=== PATIENT | female | born 1965 | race Caucasian/White ===

== ENCOUNTER 2017-09-16 07:53 | Day surgery (SDC) | payer BC ==
[~2017-09-16 07:53] MED LIST: Lactated Ringers 1,000 ML IV SCH
[2017-09-16] MEDS ORDERED: Propofol 200 MG/20 ML SDV ONE ×2 (08:14→10:28)
[2017-09-16] MEDS ORDERED: Lidocaine 2% 5 ML SDV ONE (08:14)
--- NOTE | 2017-09-16 09:12 | PCM.PREANE ---
Preanesthetic Assessment - Anesthesia/Transfusion/Family Hx Anesthesia History: Prior Anesthesia Without Reaction Family History of Anesthesia Reaction: No Transfusion History: No Prior Transfusion(s) - Review of Systems General: No Symptoms Pulmonary: No Symptoms Cardiovascular: No Symptoms (syncopal episode this am when getting up to go to bathroom. orthostatic? from bowel prep?) Neurological: No Symptoms Other: Reports: None - Physical Assessment NPO Status Date: 09/15/17 NPO Status Time: 23:00 O2 Sat by Pulse Oximetry: 98 Respiratory Rate: 16 Vital Signs: Last Vital Signs Temp 36.2 C 09/16/17 08:11 Pulse 76 09/16/17 08:11 Resp 16 09/16/17 08:11 BP 129/79 09/16/17 08:11 Pulse Ox 98 09/16/17 08:11 Height: 1.75 m Weight: 107.048 kg ASA Class: 2 Mental Status: Alert & Oriented x3 Airway Class: Mallampati = 2 Dentition: Reports: Normal Dentition ROM/Head Extension: Full Lungs: Clear to Auscultation, Normal Respiratory Effort Cardiovascular: Regular Rate, Regular Rhythm - Lab Values: Laboratory Last Values HCG, Qual NEGATIVE (NEG) 09/16/17 08:19 - Allergies Allergies/Adverse Reactions: Allergies Allergy/AdvReac Type Severity Reaction Status Date / Time atorvastatin [From Lipitor] Allergy Pain Verified 09/11/17 15:06 metformin Allergy Pain Verified 09/11/17 15:06 morphine Allergy Change Verified 09/11/17 15:06 Mental Status - Acknowledgements Anesthesia Type Planned: MAC Pt an Appropriate Candidate for the Planned Anesthesia: Yes Alternatives and Risks of Anesthesia Discussed w Pt/Guardian: Yes Pt/Guardian Understands and Agrees with Anesthesia Plan: Yes Additional Comments: will rehydrate and watch rhythm PreAnesthesia Questionnaire HEENT History: Reports: Impaired Vision Other HEENT History: wears glasses Cardiovascular History: Reports: High Cholesterol Respiratory History: Reports: None Gastrointestinal History: Reports: Chronic Constipation Genitourinary History: Reports: None 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: Polycystic Ovaries Musculoskeletal History: Reports: Fibromyalgia Other Musculoskeletal History: chronic right shoulder pain Neurological History: Reports: None Psychiatric History: Reports: None Endocrine/Metabolic History: Reports: Diabetes, Type II, Obesity/BMI 30+ Hematologic History: Reports: Anemia Immunologic History: Reports: None Oncologic (Cancer) History: Reports: None Dermatologic History: Reports: None - Infectious Disease History Infectious Disease History: Reports: Chicken Pox - Past Surgical History GI Surgical History: Reports: Appendectomy - SUBSTANCE USE Smoking Status *Q: Former Smoker Recreational Drug Use History: No - HOME MEDS Home Medications: Home Meds Cyanocobalamin (Vitamin B12) [Vitamin B12] 1,000 mcg PO DAILY 09/11/17 [History] Ferrous Gluconate [Iron] 240 mg PO ASDIRECTED 09/11/17 [History] Folic Acid 1 mg PO DAILY 09/11/17 [History] Hydrochlorothiazide 25 mg PO DAILY 09/11/17 [History] Insulin Lispro Prot/Lispro [HumaLOG Mix 75-25] 30 unit SQ BID 09/11/17 [History] Multivitamin [Daily Multiple Vitamin] 1 tab PO DAILY 09/11/17 [History] Vitamin E 100 unit PO DAILY 09/11/17 [History] traMADol HCl [Tramadol HCl] 50 mg PO Q6H PRN 09/11/17 [History] - CURRENT (IN HOUSE) MEDS Current Meds: Current Medications Lactated Ringer's (Ringers, Lactated) 1,000 mls @ 125 mls/hr IV ASDIRECTED [facility] Last Admin: 09/16/17 08:12 Dose: 125 mls/hr Discontinued Medications Lidocaine (Xylocaine-Mpf 2%) Confirm Administered Dose 5 ml .ROUTE .STK-MED ONE Stop: 09/16/17 08:15 Propofol (Diprivan 20 Ml) Confirm Administered Dose 400 mg .ROUTE .STK-MED ONE Stop: 09/16/17 08:15
--- NOTE | 2017-09-16 10:58 | PCM.OPNOTE ---
- General Post-Op/Procedure Note Date of Surgery/Procedure: 09/16/17 Operative Procedure(s): egd w bx and colonoscopy w snare polypectomy Findings: see dict [id number] Pre Op Diagnosis: abd pain and increase constipation Post-Op Diagnosis: colon polyp and gerd Anesthesia Technique: Moderate Sedation Primary Surgeon: Jimmy Rivers Pathology: 1) sessile polyp at distance 130cm, r colon, snare polypectomy 2) random coln bx 3) egd bx Complications: None Condition: Good
[2017-09-16 11:46] VITALS: BP 114/75
--- NOTE | 2017-09-16 12:02 | PCM.POSTAN ---
POST ANESTHESIA ASSESSMENT - MENTAL STATUS Mental Status: Alert, Oriented - RESPIRATORY Respiratory Status: Respiratory Rate WNL, Airway Patent, O2 Saturation Stable - CARDIOVASCULAR CV Status: Pulse Rate WNL, Blood Pressure Stable - GASTROINTESTINAL GI Status: No Symptoms - POST OP HYDRATION Hydration Status: Adequate & Stable
--- NOTE | 2017-09-16 12:02 | PCM48HPAN ---
Post Anesthesia Note - EVALUATION WITHIN 48HRS OF ANESTHETIC Vital Signs in Normal Range: Yes Patient Participated in Evaluation: Yes Respiratory Function Stable: Yes Airway Patent: Yes Cardiovascular Function Stable: Yes Hydration Status Stable: Yes Pain Control Satisfactory: Yes Nausea and Vomiting Control Satisfactory: Yes Mental Status Recovered: Yes
--- NOTE | 2017-09-16 12:20 | OR ---
SURGEON: Jimmy Rivers MD DATE OF PROCEDURE: 09/16/2017 PROCEDURE PERFORMED: 1. Esophagogastroduodenoscopy with biopsy. 2. Colonoscopy with snare polypectomy, random bx for abd pain EGD FINDINGS: 1. The patient is easily sedated with MINING ANALYST and Diprivan. The patient is soundly snoring. 2. Oropharynx and proximal esophagus are free of disease. GE junction shows mild salmon color change consistent with acid reflux. Stomach, we do not see too much rugae. The patient is status post sleeve gastrectomy. Antrum is quite inflamed, but there is no ulcer, blood, bile, or food particle. Duodenum was grossly normal. Retroflex look at the fundus of stomach, there was no hiatal hernia. Biopsy done at antrum, body, and GE junction at 40, and sucked out the air while scope pulling out. DESCRIPTION OF PROCEDURE: The patient was taken to the endoscopy room, and with the MINING ANALYST, Diprivan was administered. A well-lubricated EGD scope was gently inserted through the oropharynx, down the esophagus, passing through the gastroesophageal junction, into the stomach. The mucosa was examined upon the passage. Any etiology will be noted. Once in the stomach, we continued to advance to the distal antrum, passed through the pylorus into the second portion of the duodenum. Again, the mucosa was examined for any abnormality and etiology. The scope was then retrieved back to the stomach and then retroflexed to look at the fundus of the stomach. If a biopsy was indicated, we will biopsy the antrum, body, and gastroesophageal junction. The air will be sucked out while the scope is retrieved to reduce the patient's discomfort. The patient tolerated the procedure well. There were no intraoperative complications. Dr. Rivers was present through the whole procedure. Prior to surgery, a time-out had been called, the patient identified, procedure identified and antibiotic administered. COLONOSCOPY FINDINGS: 1. The patient is easily sedated with MINING ANALYST and Diprivan. The patient is soundly snoring. 2. Colon prep is very good. Very little liquid stool. No semi-formed stool. 3. The patient's colon was rather straight forward. Cecum indicated by ileocecal fold, one-to-one indentation, and appendix orifice. Light immittance was not observed and mucosa examined. In the right colon when the scope pulling at 130 distant, there was a 3 mm sessile polyp removed with snare polypectomy. It is in the right colon and the patient does not have inflammation, stricture, ulceration, bleeding, diverticulosis, mass, growth, or AV malformation. And random colon bx was performed because of abd pain. The patient does have mild external hemorrhoid and mild internal hemorrhoids. The patient would benefit from repeat colonoscopy in 3 to 5 years from today or if clinically or pathology report indicated otherwise. DESCRIPTION OF PROCEDURE: The patient was taken to the endoscopy room. A time out was called, patient identified, and procedure identified. Diprivan was then administrated. Patient went from awake to sleep, hearing doctor talking or door closing is normal. Perineum inspection and digital examination were then performed. A well- lubricated colonoscope was gently inserted through the rectum, advanced past the rectosigmoid junction, the descending colon, splenic flexure, transverse colon, hepatic flexure, ascending colon, arrived to the cecum. Cecum was identified as dictated in the finding. Then the scope was carefully withdrawn while attention was paid to the mucosal surface for any abnormality. Air will be sucked out during the scope withdrawal. At the rectum, retroflexed to examine any rectal diseases, fistula or hemorrhoids. During mucosal examination, polyp noted and Using snare equipment, polyp was then snared off using electrocautery. random bx performed for abd pain; The Patient tolerated procedure well. There were no intraoperative complications, and Dr. Rivers was present throughout the whole procedure. DIEGO / CATHY /[id number] MIN
--- NOTE | 2017-09-16 14:32 | OR ---
SURGEON: Jimmy Rivers MD DATE OF PROCEDURE: 09/16/2017 ADDENDUM: On the colonoscopy, random biopsy also was done for abdominal pain. DIEGO / CATHY /[id number]
--- NOTE | 2017-09-26 13:25 | OR ---
SURGEON: Jimmy Rivers MD DATE OF PROCEDURE: 09/16/2017 ADDENDUM: When the scope was examined down to the left colon area, there was a smooth walled, sessile polyp, which was removed with snare polypectomy, captured, and sent for procedure and it was on the scope a distance of 25 cm from the rectum when the scope was moving out. As always, thank you for the kind referral. DIEGO / CATHY /[id number]
== END 2017-09-16 12:20 | disposition home or self-care (01) ==
LOC: MW.SDS 07:53
PROVIDERS: ATTEND Surgery
DX: K29.50 Unspecified chronic gastritis without bleeding (principal); K31.89 Other diseases of stomach and duodenum; K20.9 Esophagitis, unspecified; D12.2 Benign neoplasm of ascending colon; K64.4 Residual hemorrhoidal skin tags; K64.8 Other hemorrhoids; D64.9 Anemia, unspecified; I10 Essential (primary) hypertension; E78.00 Pure hypercholesterolemia, unspecified; E11.9 Type 2 diabetes mellitus without complications; E66.9 Obesity, unspecified; M79.7 Fibromyalgia; Z87.891 Personal history of nicotine dependence; Z98.84 Bariatric surgery status; Z90.49 Acquired absence of other specified parts of digestive tract; Z88.5 Allergy status to narcotic agent; Z88.8 Allergy status to other drugs, medicaments and biological substances; Z79.4 Long term (current) use of insulin; Z79.899 Other long term (current) drug therapy; Z68.34 Body mass index [BMI] 34.0-34.9, adult
CPT/HCPCS: 36415; 43239; 45385; 84703; J7120; 00740; 88305; 88312; J2704

== ENCOUNTER 2021-07-11 16:13 | Inpatient (IN) | payer BC ==
--- NOTE | 2021-07-11 16:47 | EDM.PDOC ---
ED HPI GENERAL MEDICAL PROBLEM - General Chief Complaint: Skin Complaint Stated Complaint: TRIANA REFERAL, POSSIBLE TOE INFECTION Time Seen by Provider: 07/11/21 16:14 Source of Information: Reports: Patient History Limitations: Reports: No Limitations - History of Present Illness INITIAL COMMENTS - FREE TEXT/NARRATIVE: Patient is a 56-year-old female presents today for left third toe infection. She has been trying to take care of the infection as outpatient and is try Bactrim Keflex and Clinda without success. Patient was sent in by PMD for continued infection. Per patient she currently has no pain in the toe, she also denies fever chills nausea vomiting or any other systemic symptoms. Patient states this started when she had a callus to the bottom of her toe that she tried to cut off and since not healed. She is a diabetic and normally has controlled sugars. - Related Data Allergies Allergy/AdvReac Type Severity Reaction Status Date / Time atorvastatin [From Lipitor] Allergy Pain Verified 07/11/21 16:32 metformin Allergy Pain Verified 07/11/21 16:32 morphine Allergy Change Verified 07/11/21 16:32 Mental Status Home Meds: Home Meds Cyanocobalamin (Vitamin B12) [Vitamin B12] 1,000 mcg PO DAILY 09/11/17 [History] Ferrous Gluconate [Iron] 240 mg PO ASDIRECTED 09/11/17 [History] Folic Acid 1 mg PO DAILY 09/11/17 [History] Hydrochlorothiazide 25 mg PO DAILY 09/11/17 [History] Insulin Lispro Prot/Lispro [HumaLOG Mix 75-25] 30 unit SQ BID 09/11/17 [History] Multivitamin [Daily Multiple Vitamin] 1 tab PO DAILY 09/11/17 [History] Vitamin E 100 unit PO DAILY 09/11/17 [History] traMADol HCl [Tramadol HCl] 50 mg PO Q6H PRN 09/11/17 [History] Past Medical History HEENT History: Reports: Impaired Vision Other HEENT History: wears glasses Cardiovascular History: Reports: High Cholesterol Respiratory History: Reports: None Gastrointestinal History: Reports: Chronic Constipation Genitourinary History: Reports: None 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: Polycystic Ovaries Musculoskeletal History: Reports: Fibromyalgia Other Musculoskeletal History: chronic right shoulder pain Neurological History: Reports: None Psychiatric History: Reports: None Endocrine/Metabolic History: Reports: Diabetes, Type II, Obesity/BMI 30+ Hematologic History: Reports: Anemia Immunologic History: Reports: None Oncologic (Cancer) History: Reports: None Dermatologic History: Reports: None - Infectious Disease History Infectious Disease History: Reports: Chicken Pox - Past Surgical History Head Surgeries/Procedures: Reports: None HEENT Surgical History: Reports: None Cardiovascular Surgical History: Reports: None Respiratory Surgical History: Reports: None GI Surgical History: Reports: Appendectomy, Bariatric Procedure Other GI Surgeries/Procedures: gastric sleeve Female Surgical History: Reports: None Neurological Surgical History: Reports: None Musculoskeletal Surgical History: Reports: None Oncologic Surgical History: Reports: None Dermatological Surgical History: Reports: None Social & Family History - Family History Family Medical History: No Pertinent Family History - Tobacco Use Tobacco Use Status *Q: Former Tobacco User Used Tobacco, but Quit: Yes Month/Year Tobacco Last Used: 30 years - Recreational Drug Use Recreational Drug Use: No ED ROS GENERAL - Review of Systems Review Of Systems: See Below Constitutional: Reports: No Symptoms HEENT: Reports: No Symptoms Respiratory: Reports: No Symptoms Cardiovascular: Reports: No Symptoms Endocrine: Reports: No Symptoms GI/Abdominal: Reports: No Symptoms : Reports: No Symptoms Musculoskeletal: Reports: Foot Pain Skin: Reports: No Symptoms Neurological: Reports: No Symptoms Psychiatric: Reports: No Symptoms Hematologic/Lymphatic: Reports: No Symptoms Immunologic: Reports: No Symptoms ED EXAM, SKIN/RASH Exam: See Below Exam Limited By: No Limitations General Appearance: Alert, WD/WN, No Apparent Distress Eye Exam: Bilateral Eye: EOMI, PERRL Throat/Mouth: Normal Inspection Head: Atraumatic, Normocephalic Respiratory/Chest: No Respiratory Distress, Lungs Clear, Normal Breath Sounds Cardiovascular: Normal Peripheral Pulses, Regular Rate, Rhythm Peripheral Pulses: 2+: Dorsalis Pedis (L), Dorsalis Pedis (R) GI/Abdominal: Normal Bowel Sounds, Soft, Non-Tender Extremities: Normal Range of Motion, Non-Tender. No: Normal Inspection (Drainage to the plantar surface of the third toe redness to the entire left foot) Neurological: Alert, Oriented, CN II-XII Intact, Normal Cognition Course - Vital Signs Last Recorded V/S: Last Vital Signs Temp 96.3 F L 07/11/21 16:29 Pulse 81 07/11/21 16:29 Resp 18 07/11/21 16:29 BP 126/72 07/11/21 16:29 Pulse Ox 98 07/11/21 16:29 - Orders/Labs/Meds Orders: Active Orders 24 hr Category Date Time Status Patient Status [ADT] Routine ADT 07/11/21 18:04 Ordered CORONAVIRUS COVID-19 MARTIN [MOLEC] Stat Lab 07/11/21 16:52 Received VANCOmycin 2 GM/400 ML 2 gm Med 07/11/21 18:03 Ordered Premix Bag 1 bag IV STAT Medication Orders Vancomycin HCl 2 gm/ Premix 400 mls @ 200 mls/hr IV STAT ONE Stop: 07/11/21 20:02 Labs: Laboratory Tests 07/11/21 07/11/21 07/11/21 Range/Units 16:52 16:52 16:52 WBC 8.11 (4.0-11.0) K/uL RBC 4.33 (4.30-5.90) M/uL Hgb 12.2 (12.0-16.0) g/dL Hct 36.6 (36.0-46.0) % MCV 84.5 (80.0-98.0) fL MCH 28.2 (27.0-32.0) pg MCHC 33.3 (31.0-37.0) g/dL RDW Std Deviation 40.5 (28.0-62.0) fl RDW Coeff of Jessica 13 (11.0-15.0) % Plt Count 282 (150-400) K/uL MPV 9.40 (7.40-12.00) fL Neut % (Auto) 57.0 (48.0-80.0) % Lymph % (Auto) 27.6 (16.0-40.0) % Kimble % (Auto) 5.9 (0.0-15.0) % Eos % (Auto) 8.5 H (0.0-7.0) % Baso % (Auto) 1.0 (0.0-1.5) % Neut # (Auto) 4.6 (1.4-5.7) K/uL Lymph # (Auto) 2.2 (0.6-2.4) K/uL Kimble # (Auto) 0.5 (0.0-0.8) K/uL Eos # (Auto) 0.7 (0.0-0.7) K/uL Baso # (Auto) 0.1 (0.0-0.1) K/uL Nucleated RBC % 0.0 /100WBC Nucleated RBCs # 0 K/uL ESR 40 H (0-29) mm/hr Sodium 138 (136-145) mmol/L Potassium 3.6 (3.5-5.1) mmol/L Chloride 101 (98-107) mmol/L Carbon Dioxide 27.8 (21.0-32.0) mmol/L BUN 21 H (7.0-18.0) mg/dL Creatinine 1.0 (0.6-1.0) mg/dL Est Cr Clr Drug Dosing 67.21 mL/min Estimated GFR (MDRD) 57.8 ml/min Glucose 134 H (74-106) mg/dL Calcium 9.1 (8.5-10.1) mg/dL Total Bilirubin 0.3 (0.2-1.0) mg/dL AST 21 (15-37) IU/L ALT 21 (14-63) IU/L Alkaline Phosphatase 82 (46-116) U/L Creatine Kinase 91 (26-308) U/L C-Reactive Protein 1.80 H (0.00-0.90) mg/dL Total Protein 7.1 (6.4-8.2) g/dL Albumin 3.0 L (3.4-5.0) g/dL Globulin 4.1 H (2.6-4.0) g/dL Albumin/Globulin Ratio 0.7 L (0.9-1.6) Meds: Medications Generic Name Dose Route Start Last Admin Trade Name Freq PRN Reason Stop Dose Admin Vancomycin HCl 2 gm/ Premix 400 mls @ 200 mls/hr 07/11/21 18:03 IV 07/11/21 20:02 STAT ONE Discontinued Medications Generic Name Dose Route Start Last Admin Trade Name Freq PRN Reason Stop Dose Admin Ceftriaxone Sodium 2 gm 07/11/21 18:03 Ceftriaxone 1 Gm Vial IVPUSH 07/11/21 18:04 ONETIME ONE - Re-Assessments/Exams Free Text/Narrative Re-Assessment/Exam: 07/11/21 18:07 And x-ray shows possible osteomyelitis. Patient has normal WBC. Patient be started on Vanco and ceftriaxone admitted to the hospital for further care. Departure - Departure Time of Disposition: 18:06 Disposition: Admitted As Inpatient 68 Condition: Good Clinical Impression: Osteomyelitis of toe of left foot - Discharge Information Referrals: Emily Johnson DO [Primary Care Provider] - Forms: ED Department Discharge Sepsis Event Note (ED) - Evaluation Sepsis Screening Result: No Definite Risk - Focused Exam Vital Signs: Vital Signs Temp Pulse Resp BP Pulse Ox 07/11/21 16:29 96.3 F L 81 18 126/72 98 - My Orders Last 24 Hours: My Active Orders 07/11/21 16:52 CORONAVIRUS COVID-19 MARTIN [MOLEC] Stat 07/11/21 18:03 VANCOmycin 2 GM/400 ML 2 gm Premix Bag 1 bag IV STAT 07/11/21 18:04 Patient Status [ADT] Routine - Assessment/Plan Last 24 Hours: My Active Orders 07/11/21 16:52 CORONAVIRUS COVID-19 MARTIN [MOLEC] Stat 07/11/21 18:03 VANCOmycin 2 GM/400 ML 2 gm Premix Bag 1 bag IV STAT 07/11/21 18:04 Patient Status [ADT] Routine Plan: She is a 56-year-old female who presents today for possible infection of her third toe. Patient is try outpatient antibiotics without success. Patient would like me to be admitted for IV antibiotics.
--- NOTE | 2021-07-11 17:38 | CR ---
HISTORY: Third toe drainage. Possible osteomyelitis. TECHNIQUE: Left foot 3 views. COMPARISON: None. FINDINGS: Erosion of the distal lateral aspect of the tuft of the 3rd toe distal phalanx. No other erosions. No fracture or subluxation. Joint spaces are maintained. Bipartite medial hallux sesamoid. Plantar calcaneal enthesophyte. Soft tissue swelling at the ankle and in the foot. IMPRESSION: Erosion of the tuft of the 3rd toe distal phalanx suspicious for osteomyelitis. Dictated by Tien Suarez MD @ 07/11/2021 5:36:[address] Tien Suarez @ Jul 11 2021 5:36PM
[2021-07-11 17:41] LABS: CARBON DIOXIDE,CO2 27.8 mmol/L (21.0-32.0); POTASSIUM,K 3.6 mmol/L (3.5-5.1)
[2021-07-11] MEDS ORDERED: cefTRIAXone 1 GM Vial IVPUSH ONE (18:03)
[2021-07-11] MEDS ORDERED: VANCOmycin 2 GM/400 ML 2 GM in Premix Bag 1 BAG IV ONE (18:03)
[2021-07-11] MEDS ORDERED: cefTRIAXone 2 GM in Premix Bag 1 BAG IV ONE (18:19)
[2021-07-11] MEDS ORDERED: Insulin Lispro Protamine/Lispro 75-25 100 Units/ML 3 ML KwikPen SUBCUT SCH (21:00)
[2021-07-11] MEDS ORDERED: Piperacillin/Tazobactam 3.375 GM in Sodium Chloride 0.9% 50 ML IV SCH (23:45)
[2021-07-11] MEDS ORDERED: 50% Dextrose in Water 50 ML Syringe IVPUSH PRN (23:55)
[2021-07-11] MEDS ORDERED: Glucagon,Human Recombinant 1 MG Vial IM PRN (23:55)
[2021-07-12] MEDS ORDERED: VANCOmycin 1.75 GM/350 ML 1.75 GM in Premix Bag 1 BAG IV SCH ×2
--- NOTE | 2021-07-12 00:08 | PCM.HP.2 ---
H&P History of Present Illness - General Date of Service: 07/11/21 Admit Problem/Dx: Admission Diagnosis/Problem Admission Diagnosis/Problem Osteomyelitis of toe of left foot - History of Present Illness Initial Comments - Free Text/Narative: 56 yo female with pmh of diabetes and hypertension who for several weeks has been treated infection of his middle left toe. Patient has been on clindamycin then Bactrim. In follow up in clinic today patient was told to go to the ER. PAtient reported she had tried to cut off a callus which caused the infection. She reports some pain and redness around the left toe. Left Toe-Middle Pain Score (Numeric/FACES): 4 - Related Data Allergies/Adverse Reactions: Allergies Allergy/AdvReac Type Severity Reaction Status Date / Time atorvastatin [From Lipitor] Allergy Pain Verified 07/11/21 20:04 metformin Allergy Pain Verified 07/11/21 20:04 morphine Allergy Change Verified 07/11/21 20:04 Mental Status Home Medications: Home Meds Hydrochlorothiazide 25 mg PO DAILY 09/11/17 [History] traMADol HCl [Tramadol HCl] 50 mg PO Q6H PRN 09/11/17 [History] Insulin Glargine/Lixisenatide [[place] 100 Unit-33 Mcg/ml Pen] 56 units SUBCUT ACBREAKFAST 07/11/21 [History] Acetaminophen/HYDROcodone [HYDROcodone-Acetaminophen 5-325 MG *] 5 - 325 mg PO Q4H PRN 07/12/21 [History] Dapagliflozin Propanediol [Farxiga] 10 mg PO DAILY 07/12/21 [History] Potassium Chloride [Klor-Con 10] 10 meq PO DAILY 07/12/21 [History] Sertraline [Zoloft] 50 mg PO DAILY 07/12/21 [History] atorvaSTATin [Lipitor] 40 mg PO DAILY 07/12/21 [History] atorvaSTATin [Lipitor] 40 mg PO DAILY 07/12/21 [History] Amoxicillin/Potassium Clav [Augmentin 875-125 Tablet] 1 each PO BID #14 tablet 07/13/21 [Rx] Linezolid [Zyvox] 600 mg PO Q12H #14 tab 07/13/21 [Rx] Past Medical History HEENT History: Reports: Impaired Vision Other HEENT History: wears glasses Cardiovascular History: Reports: High Cholesterol Respiratory History: Reports: None Gastrointestinal History: Reports: Chronic Constipation Genitourinary History: Reports: None [employer] History: Reports: Polycystic Ovaries Musculoskeletal History: Reports: Fibromyalgia Other Musculoskeletal History: chronic right shoulder pain Neurological History: Reports: None Psychiatric History: Reports: Depression Endocrine/Metabolic History: Reports: Diabetes, Type II, Obesity/BMI 30+ Hematologic History: Reports: Anemia Immunologic History: Reports: None Oncologic (Cancer) History: Reports: None Dermatologic History: Reports: None - Infectious Disease History Infectious Disease History: Reports: Chicken Pox - Past Surgical History Head Surgeries/Procedures: Reports: None HEENT Surgical History: Reports: None Cardiovascular Surgical History: Reports: None Respiratory Surgical History: Reports: None GI Surgical History: Reports: Appendectomy, Bariatric Procedure Other GI Surgeries/Procedures: gastric sleeve Female Surgical History: Reports: None Neurological Surgical History: Reports: None Musculoskeletal Surgical History: Reports: None Oncologic Surgical History: Reports: None Dermatological Surgical History: Reports: None Social & Family History - Family History Family Medical History: No Pertinent Family History - Tobacco Use Tobacco Use Status *Q: Former Tobacco User Used Tobacco, but Quit: Yes Month/Year Tobacco Last Used: 1988 - Caffeine Use Caffeine Use: Reports: Coffee - Recreational Drug Use Recreational Drug Use: No H&P Review of Systems - Review of Systems: Review Of Systems: Comprehensive ROS is negative, except as noted in HPI. Exam - Exam Exam: See Below - Vital Signs Vital Signs: Last Vital Signs Temp 36.3 C 07/11/21 23:35 Pulse 69 07/11/21 23:35 Resp 18 07/11/21 23:35 BP 138/60 07/11/21 23:35 Pulse Ox 96 07/11/21 23:35 Weight: 116.483 kg - Exam General: Alert, Oriented HEENT: Mucosa Moist & [place] Neck: Supple Lungs: Clear to Auscultation, Normal Respiratory Effort Cardiovascular: Regular Rate, Regular Rhythm GI/Abdominal Exam: Normal Bowel Sounds, Soft, Non-Tender Extremities: Non-Tender, No Pedal Edema, Other (3rd toe with dried eschar circumfrental. with mild edema and erthema of distal medial dorsum of the foot.) Skin: Warm, Dry, Intact - Patient Data Lab Results Last 24 hrs: Laboratory Results - last 24 hr 07/11/21 07/11/21 07/11/21 Range/Units 16:52 16:52 16:52 WBC 8.11 (4.0-11.0) K/uL RBC 4.33 (4.30-5.90) M/uL Hgb 12.2 (12.0-16.0) g/dL Hct 36.6 (36.0-46.0) % MCV 84.5 (80.0-98.0) fL MCH 28.2 (27.0-32.0) pg MCHC 33.3 (31.0-37.0) g/dL RDW Std Deviation 40.5 (28.0-62.0) fl RDW Coeff of Jessica 13 (11.0-15.0) % Plt Count 282 (150-400) K/uL MPV 9.40 (7.40-12.00) fL Neut % (Auto) 57.0 (48.0-80.0) % Lymph % (Auto) 27.6 (16.0-40.0) % [place] % (Auto) 5.9 (0.0-15.0) % Eos % (Auto) 8.5 H (0.0-7.0) % Baso % (Auto) 1.0 (0.0-1.5) % Neut # (Auto) 4.6 (1.4-5.7) K/uL Lymph # (Auto) 2.2 (0.6-2.4) K/uL [place] # (Auto) 0.5 (0.0-0.8) K/uL Eos # (Auto) 0.7 (0.0-0.7) K/uL Baso # (Auto) 0.1 (0.0-0.1) K/uL Nucleated RBC % 0.0 /100WBC Nucleated RBCs # 0 K/uL ESR 40 H (0-29) mm/hr Sodium 138 (136-145) mmol/L Potassium 3.6 (3.5-5.1) mmol/L Chloride 101 (98-107) mmol/L Carbon Dioxide 27.8 (21.0-32.0) mmol/L BUN 21 H (7.0-18.0) mg/dL Creatinine 1.0 (0.6-1.0) mg/dL Est Cr Clr Drug Dosing 67.21 mL/min Estimated GFR (MDRD) 57.8 ml/min Glucose 134 H (74-106) mg/dL POC Glucose (70-99) mg/dL Calcium 9.1 (8.5-10.1) mg/dL Total Bilirubin 0.3 (0.2-1.0) mg/dL AST 21 (15-37) IU/L ALT 21 (14-63) IU/L Alkaline Phosphatase 82 (46-116) U/L Creatine Kinase 91 (26-308) U/L C-Reactive Protein 1.80 H (0.00-0.90) mg/dL Total Protein 7.1 (6.4-8.2) g/dL Albumin 3.0 L (3.4-5.0) g/dL Globulin 4.1 H (2.6-4.0) g/dL Albumin/Globulin Ratio 0.7 L (0.9-1.6) SARS-CoV-2 RNA (MARTIN) (NEGATIVE) 07/11/21 07/11/21 Range/Units 16:52 20:12 WBC (4.0-11.0) K/uL RBC (4.30-5.90) M/uL Hgb (12.0-16.0) g/dL Hct (36.0-46.0) % MCV (80.0-98.0) fL MCH (27.0-32.0) pg MCHC (31.0-37.0) g/dL RDW Std Deviation (28.0-62.0) fl RDW Coeff of Jessica (11.0-15.0) % Plt Count (150-400) K/uL MPV (7.40-12.00) fL Neut % (Auto) (48.0-80.0) % Lymph % (Auto) (16.0-40.0) % [place] % (Auto) (0.0-15.0) % Eos % (Auto) (0.0-7.0) % Baso % (Auto) (0.0-1.5) % Neut # (Auto) (1.4-5.7) K/uL Lymph # (Auto) (0.6-2.4) K/uL [place] # (Auto) (0.0-0.8) K/uL Eos # (Auto) (0.0-0.7) K/uL Baso # (Auto) (0.0-0.1) K/uL Nucleated RBC % /100WBC Nucleated RBCs # K/uL ESR (0-29) mm/hr Sodium (136-145) mmol/L Potassium (3.5-5.1) mmol/L Chloride (98-107) mmol/L Carbon Dioxide (21.0-32.0) mmol/L BUN (7.0-18.0) mg/dL Creatinine (0.6-1.0) mg/dL Est Cr Clr Drug Dosing mL/min Estimated GFR (MDRD) ml/min Glucose (74-106) mg/dL POC Glucose 82 (70-99) mg/dL Calcium (8.5-10.1) mg/dL Total Bilirubin (0.2-1.0) mg/dL AST (15-37) IU/L ALT (14-63) IU/L Alkaline Phosphatase (46-116) U/L Creatine Kinase (26-308) U/L C-Reactive Protein (0.00-0.90) mg/dL Total Protein (6.4-8.2) g/dL Albumin (3.4-5.0) g/dL Globulin (2.6-4.0) g/dL Albumin/Globulin Ratio (0.9-1.6) SARS-CoV-2 RNA (MARTIN) NEGATIVE (NEGATIVE) Result Diagrams: 07/13/21 05:46 07/13/21 05:46 Sepsis Event Note - Evaluation Sepsis Screening Result: No Definite Risk - Focused Exam Vital Signs: Vital Signs Temp Pulse Resp BP Pulse Ox 07/11/21 23:35 36.3 C 69 18 138/60 96 07/11/21 20:01 35.9 C L 70 18 145/78 H 100 07/11/21 18:32 35.6 C L 64 18 129/78 97 07/11/21 16:29 35.7 C L 81 18 126/72 98 Problem List Initiated/Reviewed/Updated: Yes Orders Last 24hrs: Active Orders 24 hr Category Date Time Status Patient Status [ADT] Routine ADT 07/11/21 18:04 Active Antiembolic Devices [RC] PER UNIT ROUTINE Care 07/11/21 23:55 Active Blood Glucose Check, Bedside [RC] TIDMEALS Care 07/11/21 23:54 Active Oxygen Therapy [RC] PRN Care 07/11/21 23:54 Active Up ad Sherry [RC] ASDIRECTED Care 07/11/21 23:54 Active VTE/DVT Education [RC] PER UNIT ROUTINE Care 07/11/21 23:54 Active Vital Signs [RC] Q4H Care 07/11/21 23:54 Active [employer] Diet [DIET] Diet 07/12/21 Breakfast Active BASIC METABOLIC PANEL,BMP [CHEM] AM Lab 07/12/21 05:11 Ordered CBC WITH AUTO DIFF [HEME] AM Lab 07/12/21 05:11 Ordered Acetaminophen/HYDROcodone [[place] 325-5 MG] Med 07/11/21 23:50 Active 1 tab PO Q6H PRN Dextrose 50% in Water Med 07/11/21 23:55 Active 50 ml IVPUSH ASDIRECTED PRN Enoxaparin [Lovenox] Med 07/11/21 23:45 Active 40 mg SUBCUT Q24H Glucagon,Human Recombinant [GlucaGen] Med 07/11/21 23:55 Active 1 mg IM ASDIRECTED PRN Insulin Aspart [NovoLOG] Med 07/12/21 07:30 Active See Protocol SUBCUT TIDAC Insulin Glargine/Lixisenatide [Soliqua 100 Unit-33 Mcg/ Med 07/12/21 07:30 Ordered ml Pen] 56 units SUBCUT ACBREAKFAST Pharmacy to Dose - Vancomycin Med 07/11/21 23:45 Ordered 1 dose .XX ASDIRECTED VANCOmycin 1.75 GM/350 ML 1.75 gm Med 07/12/21 00:00 Active Premix Bag 1 bag IV Q12H cefTRIAXone [Rocephin] 1 gm Med 07/12/21 18:00 Active Sodium Chloride 0.9% [Normal Saline] 50 ml IV Q24H Sequential Compression Device [OM.PC] Per Unit Routine Oth 07/11/21 23:54 Ordered Resuscitation Status Routine Resus Stat 07/11/21 23:54 Ordered Medication Orders Hydrocodone Bitart/Acetaminophen (Acetaminophen/Hydrocodone 325-5 Mg Tab) 1 tab PO Q6H PRN PRN Reason: Pain Dextrose/Water (50% Dextrose In Water 50 Ml Syringe) 50 ml IVPUSH ASDIRECTED PRN PRN Reason: Hypoglycemia Enoxaparin Sodium (Enoxaparin 40 Mg/0.4 Ml Syringe) 40 mg SUBCUT Q24H KATHY Glucagon (Glucagon,Human Recombinant 1 Mg Vial) 1 mg IM ASDIRECTED PRN PRN Reason: Hypoglycemia Ceftriaxone Sodium 1 gm/ (Sodium Chloride) 50 mls @ 100 mls/hr IV Q24H KATHY Vancomycin HCl 1.75 gm/ Premix 350 mls @ 200 mls/hr IV Q12H KATHY Insulin Aspart (Insulin Aspart 100 Units/Ml 3 Ml Pen) 0 unit SUBCUT TIDAC KATHY; Protocol Non-Formulary Medication (Insulin Glargine/Lixisenatide [Soliqu[place] 100 Unit-33 Mcg/Ml Pen]) 56 units SUBCUT ACBREAKFAST KATHY Vancomycin HCl (Pharmacy To Dose - Vancomycin) 1 dose .XX ASDIRECTED KATHY Assessment/Plan Comment:: 56 yo female admitted with left 3rd toe cellulities. We will treat with IV antibiotics. We will eval for osteomyelitis with MRI.
[2021-07-12] MEDS: Enoxaparin 40 MG/0.4 ML Syringe SUBCUT SCH (00:39)
[2021-07-12] MEDS: Acetaminophen/HYDROcodone 325-5 MG Tab PO PRN ×3 (00:40→20:53)
[2021-07-12 07:01] LABS: BLOOD UREA NITROGEN,BUN 15 mg/dL (7.0-18.0); CARBON DIOXIDE,CO2 28.6 mmol/L (21.0-32.0); CHLORIDE,CL 105 mmol/L (98-107); GLUCOSE RANDOM 84 mg/dL (74-106); POTASSIUM,K 3.5 mmol/L (3.5-5.1); SODIUM,NA 140 mmol/L (136-145)
[2021-07-12] MEDS: Insulin Aspart 100 Units/ML 3 ML Pen SUBCUT SCH ×3 (09:10→17:50)
[2021-07-12] MEDS: INSULIN GLARGINE SUBCUT SCH (09:48)
[2021-07-12] MEDS: LIXISENATIDE SUBCUT SCH (09:48)
--- NOTE | 2021-07-12 10:45 | PCM.PN ---
- General Info Date of Service: 07/12/21 Admission Dx/Problem (Free Text): Admission Diagnosis/Problem Admission Diagnosis/Problem Osteomyelitis of toe of left foot Subjective Update: Patient feeling okay today. Pain to left foot is 3 out of 10. No active drainage but she reports of any of the dried scabbed areas peel she has drainage. Foot is slightly erythematous. Denies chest pain shortness of breath and reports that she is tired she did not sleep well overnight. Functional Status: Reports: Pain Controlled, Tolerating Diet, Ambulating (Nonweightbearing to left foot), Urinating - Review of Systems General: Reports: No Symptoms. Denies: Fever, Weakness, Fatigue HEENT: Reports: No Symptoms. Denies: Headaches, Sore Throat, Visual Changes Pulmonary: Reports: No Symptoms. Denies: Shortness of Breath Cardiovascular: Reports: No Symptoms. Denies: Chest Pain Gastrointestinal: Reports: No Symptoms. Denies: Abdominal Pain, Nausea, Vomiting Genitourinary: Reports: No Symptoms. Denies: Dysuria, Frequency, Burning Musculoskeletal: Reports: Joint Swelling (Left foot) Skin: Reports: Other (Dried/crusted left third toe.) Neurological: Reports: No Symptoms Psychiatric: Reports: No Symptoms - Patient Data Vitals - Most Recent: Last Vital Signs Temp 97.0 F 07/12/21 07:52 Pulse 63 07/12/21 07:52 Resp 17 07/12/21 07:52 BP 122/79 07/12/21 07:52 Pulse Ox 96 07/12/21 07:52 Weight - Most Recent: 116.483 kg I&O - Last 24 Hours: Intake & Output 07/11/21 07/12/21 07/12/21 22:59 06:59 14:59 Intake Total 400 300 Output Total 1600 550 Balance -1200 -250 Lab Results Last 24 Hours: Laboratory Results - last 24 hr 07/11/21 07/11/21 07/11/21 Range/Units 16:52 16:52 16:52 WBC 8.11 (4.0-11.0) K/uL RBC 4.33 (4.30-5.90) M/uL Hgb 12.2 (12.0-16.0) g/dL Hct 36.6 (36.0-46.0) % MCV 84.5 (80.0-98.0) fL MCH 28.2 (27.0-32.0) pg MCHC 33.3 (31.0-37.0) g/dL RDW Std Deviation 40.5 (28.0-62.0) fl RDW Coeff of Jessica 13 (11.0-15.0) % Plt Count 282 (150-400) K/uL MPV 9.40 (7.40-12.00) fL Neut % (Auto) 57.0 (48.0-80.0) % Lymph % (Auto) 27.6 (16.0-40.0) % [place] % (Auto) 5.9 (0.0-15.0) % Eos % (Auto) 8.5 H (0.0-7.0) % Baso % (Auto) 1.0 (0.0-1.5) % Neut # (Auto) 4.6 (1.4-5.7) K/uL Lymph # (Auto) 2.2 (0.6-2.4) K/uL [place] # (Auto) 0.5 (0.0-0.8) K/uL Eos # (Auto) 0.7 (0.0-0.7) K/uL Baso # (Auto) 0.1 (0.0-0.1) K/uL Nucleated RBC % 0.0 /100WBC Nucleated RBCs # 0 K/uL ESR 40 H (0-29) mm/hr Sodium 138 (136-145) mmol/L Potassium 3.6 (3.5-5.1) mmol/L Chloride 101 (98-107) mmol/L Carbon Dioxide 27.8 (21.0-32.0) mmol/L BUN 21 H (7.0-18.0) mg/dL Creatinine 1.0 (0.6-1.0) mg/dL Est Cr Clr Drug Dosing 67.21 mL/min Estimated GFR (MDRD) 57.8 ml/min Glucose 134 H (74-106) mg/dL POC Glucose (70-99) mg/dL Calcium 9.1 (8.5-10.1) mg/dL Total Bilirubin 0.3 (0.2-1.0) mg/dL AST 21 (15-37) IU/L ALT 21 (14-63) IU/L Alkaline Phosphatase 82 (46-116) U/L Creatine Kinase 91 (26-308) U/L C-Reactive Protein 1.80 H (0.00-0.90) mg/dL Total Protein 7.1 (6.4-8.2) g/dL Albumin 3.0 L (3.4-5.0) g/dL Globulin 4.1 H (2.6-4.0) g/dL Albumin/Globulin Ratio 0.7 L (0.9-1.6) SARS-CoV-2 RNA (MARTIN) (NEGATIVE) 07/11/21 07/11/21 07/12/21 Range/Units 16:52 20:12 05:40 WBC 6.53 (4.0-11.0) K/uL RBC 4.31 (4.30-5.90) M/uL Hgb 12.0 (12.0-16.0) g/dL Hct 36.6 (36.0-46.0) % MCV 84.9 (80.0-98.0) fL MCH 27.8 (27.0-32.0) pg MCHC 32.8 (31.0-37.0) g/dL RDW Std Deviation 41.0 (28.0-62.0) fl RDW Coeff of Jessica 13 (11.0-15.0) % Plt Count 254 (150-400) K/uL MPV 9.40 (7.40-12.00) fL Neut % (Auto) 49.8 (48.0-80.0) % Lymph % (Auto) 30.5 (16.0-40.0) % [place] % (Auto) 5.8 (0.0-15.0) % Eos % (Auto) 13.0 H (0.0-7.0) % Baso % (Auto) 0.9 (0.0-1.5) % Neut # (Auto) 3.3 (1.4-5.7) K/uL Lymph # (Auto) 2.0 (0.6-2.4) K/uL [place] # (Auto) 0.4 (0.0-0.8) K/uL Eos # (Auto) 0.9 H (0.0-0.7) K/uL Baso # (Auto) 0.1 (0.0-0.1) K/uL Nucleated RBC % 0.0 /100WBC Nucleated RBCs # 0 K/uL ESR (0-29) mm/hr Sodium (136-145) mmol/L Potassium (3.5-5.1) mmol/L Chloride (98-107) mmol/L Carbon Dioxide (21.0-32.0) mmol/L BUN (7.0-18.0) mg/dL Creatinine (0.6-1.0) mg/dL Est Cr Clr Drug Dosing mL/min Estimated GFR (MDRD) ml/min Glucose (74-106) mg/dL POC Glucose 82 (70-99) mg/dL Calcium (8.5-10.1) mg/dL Total Bilirubin (0.2-1.0) mg/dL AST (15-37) IU/L ALT (14-63) IU/L Alkaline Phosphatase (46-116) U/L Creatine Kinase (26-308) U/L C-Reactive Protein (0.00-0.90) mg/dL Total Protein (6.4-8.2) g/dL Albumin (3.4-5.0) g/dL Globulin (2.6-4.0) g/dL Albumin/Globulin Ratio (0.9-1.6) SARS-CoV-2 RNA (MARTIN) NEGATIVE (NEGATIVE) 07/12/21 07/12/21 Range/Units 05:40 06:44 WBC (4.0-11.0) K/uL RBC (4.30-5.90) M/uL Hgb (12.0-16.0) g/dL Hct (36.0-46.0) % MCV (80.0-98.0) fL MCH (27.0-32.0) pg MCHC (31.0-37.0) g/dL RDW Std Deviation (28.0-62.0) fl RDW Coeff of Jessica (11.0-15.0) % Plt Count (150-400) K/uL MPV (7.40-12.00) fL Neut % (Auto) (48.0-80.0) % Lymph % (Auto) (16.0-40.0) % [place] % (Auto) (0.0-15.0) % Eos % (Auto) (0.0-7.0) % Baso % (Auto) (0.0-1.5) % Neut # (Auto) (1.4-5.7) K/uL Lymph # (Auto) (0.6-2.4) K/uL [place] # (Auto) (0.0-0.8) K/uL Eos # (Auto) (0.0-0.7) K/uL Baso # (Auto) (0.0-0.1) K/uL Nucleated RBC % /100WBC Nucleated RBCs # K/uL ESR (0-29) mm/hr Sodium 140 (136-145) mmol/L Potassium 3.5 (3.5-5.1) mmol/L Chloride 105 (98-107) mmol/L Carbon Dioxide 28.6 (21.0-32.0) mmol/L BUN 15 (7.0-18.0) mg/dL Creatinine 0.8 (0.6-1.0) mg/dL Est Cr Clr Drug Dosing 84.01 mL/min Estimated GFR (MDRD) > 60.0 ml/min Glucose 84 (74-106) mg/dL POC Glucose 89 (70-99) mg/dL Calcium 8.4 L (8.5-10.1) mg/dL Total Bilirubin (0.2-1.0) mg/dL AST (15-37) IU/L ALT (14-63) IU/L Alkaline Phosphatase (46-116) U/L Creatine Kinase (26-308) U/L C-Reactive Protein (0.00-0.90) mg/dL Total Protein (6.4-8.2) g/dL Albumin (3.4-5.0) g/dL Globulin (2.6-4.0) g/dL Albumin/Globulin Ratio (0.9-1.6) SARS-CoV-2 RNA (MARTIN) (NEGATIVE) Med Orders - Current: Current Medications Hydrocodone Bitart/Acetaminophen (Acetaminophen/Hydrocodone 325-5 Mg Tab) 1 tab PO Q6H PRN PRN Reason: Pain Last Admin: 07/12/21 00:40 Dose: 1 tab Documented by: Dextrose/Water (50% Dextrose In Water 50 Ml Syringe) 50 ml IVPUSH ASDIRECTED PRN PRN Reason: Hypoglycemia Enoxaparin Sodium (Enoxaparin 40 Mg/0.4 Ml Syringe) 40 mg SUBCUT Q24H [facility] Last Admin: 07/12/21 00:39 Dose: 40 mg Documented by: Glucagon (Glucagon,Human Recombinant 1 Mg Vial) 1 mg IM ASDIRECTED PRN PRN Reason: Hypoglycemia Ceftriaxone Sodium 1 gm/ (Sodium Chloride) 50 mls @ 100 mls/hr IV Q24H KATHY Vancomycin HCl 1.75 gm/ Premix 350 mls @ 200 mls/hr IV Q12H [facility] Insulin Aspart (Insulin Aspart 100 Units/Ml 3 Ml Pen) 0 unit SUBCUT TIDAC [facility]; Protocol Last Admin: 07/12/21 09:10 Dose: Not Given Documented by: Insulin Glargine/Lixisenatide [ Soliqua 100 Unit-33 Mcg/Ml 56 each SUBCUT ACBREAKFAST [facility] Last Admin: 07/12/21 09:48 Dose: 56 each Documented by: Vancomycin HCl (Pharmacy To Dose - Vancomycin) 1 dose .XX ASDIRECTED KATHY Discontinued Medications Ceftriaxone Sodium (Ceftriaxone 1 Gm Vial) 2 gm IVPUSH ONETIME ONE Stop: 07/11/21 18:04 Last Admin: 07/11/21 18:20 Dose: Not Given Documented by: Vancomycin HCl 2 gm/ Premix 400 mls @ 200 mls/hr IV STAT ONE Stop: 07/11/21 20:02 Last Admin: 07/11/21 21:00 Dose: 200 mls/hr Documented by: Ceftriaxone Sodium/Dextrose 2 (gm/ Premix) 50 mls @ 100 mls/hr IV ONETIME ONE Stop: 07/11/21 18:48 Last Admin: 07/11/21 18:33 Dose: 100 mls/hr Documented by: Piperacillin Sod/Tazobactam (Sod 3.375 gm/ Sodium Chloride) 50 mls @ 100 mls/hr IV Q6H [facility] Last Admin: 07/12/21 03:03 Dose: Not Given Documented by: Vancomycin HCl 1.75 gm/ Premix 350 mls @ 200 mls/hr IV Q12H [facility] Last Admin: 07/12/21 04:49 Dose: Not Given Documented by: Insulin Lispro Protam/Lispro Human (Insulin Lispro Protamine/Lispro 75-25 100 Units/Ml 3 Ml Kwikpen) 30 unit SUBCUT BID KATHY - Exam Quality Assessment: DVT Prophylaxis. No: Supplemental Oxygen General: Alert, Oriented, Cooperative, No Acute Distress Lungs: Clear to Auscultation, Normal Respiratory Effort Cardiovascular: Regular Rate, Regular Rhythm GI/Abdominal Exam: Normal Bowel Sounds, Soft, Non-Tender Extremities: Normal Inspection, Normal Range of Motion, Non-Tender, Pedal Edema (+1), Increased Warmth (Left foot), Redness (Left foot dorsum) Peripheral Pulses: 2+: Posterior Tibial (L), Dorsalis Pedis (L) Wound/Incisions: No Drainage, Other (Crusting with mildly necrotic tissue noted to third phalange. Crusting and flaking of skin stop at base of third phalange. Erythema covers dorsum of foot) Neurological: No New Focal Deficit Psy/Mental Status: Alert, Normal Affect, Normal Mood - Patient Data Lab Results Last 24 hrs: Laboratory Results - last 24 hr 07/11/21 07/11/21 07/11/21 Range/Units 16:52 16:52 16:52 WBC 8.11 (4.0-11.0) K/uL RBC 4.33 (4.30-5.90) M/uL Hgb 12.2 (12.0-16.0) g/dL Hct 36.6 (36.0-46.0) % MCV 84.5 (80.0-98.0) fL MCH 28.2 (27.0-32.0) pg MCHC 33.3 (31.0-37.0) g/dL RDW Std Deviation 40.5 (28.0-62.0) fl RDW Coeff of Jessica 13 (11.0-15.0) % Plt Count 282 (150-400) K/uL MPV 9.40 (7.40-12.00) fL Neut % (Auto) 57.0 (48.0-80.0) % Lymph % (Auto) 27.6 (16.0-40.0) % [place] % (Auto) 5.9 (0.0-15.0) % Eos % (Auto) 8.5 H (0.0-7.0) % Baso % (Auto) 1.0 (0.0-1.5) % Neut # (Auto) 4.6 (1.4-5.7) K/uL Lymph # (Auto) 2.2 (0.6-2.4) K/uL [place] # (Auto) 0.5 (0.0-0.8) K/uL Eos # (Auto) 0.7 (0.0-0.7) K/uL Baso # (Auto) 0.1 (0.0-0.1) K/uL Nucleated RBC % 0.0 /100WBC Nucleated RBCs # 0 K/uL ESR 40 H (0-29) mm/hr Sodium 138 (136-145) mmol/L Potassium 3.6 (3.5-5.1) mmol/L Chloride 101 (98-107) mmol/L Carbon Dioxide 27.8 (21.0-32.0) mmol/L BUN 21 H (7.0-18.0) mg/dL Creatinine 1.0 (0.6-1.0) mg/dL Est Cr Clr Drug Dosing 67.21 mL/min Estimated GFR (MDRD) 57.8 ml/min Glucose 134 H (74-106) mg/dL POC Glucose (70-99) mg/dL Calcium 9.1 (8.5-10.1) mg/dL Total Bilirubin 0.3 (0.2-1.0) mg/dL AST 21 (15-37) IU/L ALT 21 (14-63) IU/L Alkaline Phosphatase 82 (46-116) U/L Creatine Kinase 91 (26-308) U/L C-Reactive Protein 1.80 H (0.00-0.90) mg/dL Total Protein 7.1 (6.4-8.2) g/dL Albumin 3.0 L (3.4-5.0) g/dL Globulin 4.1 H (2.6-4.0) g/dL Albumin/Globulin Ratio 0.7 L (0.9-1.6) SARS-CoV-2 RNA (MARTIN) (NEGATIVE) 07/11/21 07/11/21 07/12/21 Range/Units 16:52 20:12 05:40 WBC 6.53 (4.0-11.0) K/uL RBC 4.31 (4.30-5.90) M/uL Hgb 12.0 (12.0-16.0) g/dL Hct 36.6 (36.0-46.0) % MCV 84.9 (80.0-98.0) fL MCH 27.8 (27.0-32.0) pg MCHC 32.8 (31.0-37.0) g/dL RDW Std Deviation 41.0 (28.0-62.0) fl RDW Coeff of Jessica 13 (11.0-15.0) % Plt Count 254 (150-400) K/uL MPV 9.40 (7.40-12.00) fL Neut % (Auto) 49.8 (48.0-80.0) % Lymph % (Auto) 30.5 (16.0-40.0) % [place] % (Auto) 5.8 (0.0-15.0) % Eos % (Auto) 13.0 H (0.0-7.0) % Baso % (Auto) 0.9 (0.0-1.5) % Neut # (Auto) 3.3 (1.4-5.7) K/uL Lymph # (Auto) 2.0 (0.6-2.4) K/uL [place] # (Auto) 0.4 (0.0-0.8) K/uL Eos # (Auto) 0.9 H (0.0-0.7) K/uL Baso # (Auto) 0.1 (0.0-0.1) K/uL Nucleated RBC % 0.0 /100WBC Nucleated RBCs # 0 K/uL ESR (0-29) mm/hr Sodium (136-145) mmol/L Potassium (3.5-5.1) mmol/L Chloride (98-107) mmol/L Carbon Dioxide (21.0-32.0) mmol/L BUN (7.0-18.0) mg/dL Creatinine (0.6-1.0) mg/dL Est Cr Clr Drug Dosing mL/min Estimated GFR (MDRD) ml/min Glucose (74-106) mg/dL POC Glucose 82 (70-99) mg/dL Calcium (8.5-10.1) mg/dL Total Bilirubin (0.2-1.0) mg/dL AST (15-37) IU/L ALT (14-63) IU/L Alkaline Phosphatase (46-116) U/L Creatine Kinase (26-308) U/L C-Reactive Protein (0.00-0.90) mg/dL Total Protein (6.4-8.2) g/dL Albumin (3.4-5.0) g/dL Globulin (2.6-4.0) g/dL Albumin/Globulin Ratio (0.9-1.6) SARS-CoV-2 RNA (MARTIN) NEGATIVE (NEGATIVE) 07/12/21 07/12/21 Range/Units 05:40 06:44 WBC (4.0-11.0) K/uL RBC (4.30-5.90) M/uL Hgb (12.0-16.0) g/dL Hct (36.0-46.0) % MCV (80.0-98.0) fL MCH (27.0-32.0) pg MCHC (31.0-37.0) g/dL RDW Std Deviation (28.0-62.0) fl RDW Coeff of Jessica (11.0-15.0) % Plt Count (150-400) K/uL MPV (7.40-12.00) fL Neut % (Auto) (48.0-80.0) % Lymph % (Auto) (16.0-40.0) % [place] % (Auto) (0.0-15.0) % Eos % (Auto) (0.0-7.0) % Baso % (Auto) (0.0-1.5) % Neut # (Auto) (1.4-5.7) K/uL Lymph # (Auto) (0.6-2.4) K/uL [place] # (Auto) (0.0-0.8) K/uL Eos # (Auto) (0.0-0.7) K/uL Baso # (Auto) (0.0-0.1) K/uL Nucleated RBC % /100WBC Nucleated RBCs # K/uL ESR (0-29) mm/hr Sodium 140 (136-145) mmol/L Potassium 3.5 (3.5-5.1) mmol/L Chloride 105 (98-107) mmol/L Carbon Dioxide 28.6 (21.0-32.0) mmol/L BUN 15 (7.0-18.0) mg/dL Creatinine 0.8 (0.6-1.0) mg/dL Est Cr Clr Drug Dosing 84.01 mL/min Estimated GFR (MDRD) > 60.0 ml/min Glucose 84 (74-106) mg/dL POC Glucose 89 (70-99) mg/dL Calcium 8.4 L (8.5-10.1) mg/dL Total Bilirubin (0.2-1.0) mg/dL AST (15-37) IU/L ALT (14-63) IU/L Alkaline Phosphatase (46-116) U/L Creatine Kinase (26-308) U/L C-Reactive Protein (0.00-0.90) mg/dL Total Protein (6.4-8.2) g/dL Albumin (3.4-5.0) g/dL Globulin (2.6-4.0) g/dL Albumin/Globulin Ratio (0.9-1.6) SARS-CoV-2 RNA (MARTIN) (NEGATIVE) Result Diagrams: 07/12/21 05:40 07/12/21 05:40 Sepsis Event Note - Evaluation Sepsis Screening Result: No Definite Risk - Focused Exam Vital Signs: Vital Signs Temp Pulse Resp BP Pulse Ox 07/12/21 07:52 97.0 F 63 17 122/79 96 07/12/21 04:50 97.1 F 59 L 18 128/62 97 07/11/21 23:35 97.3 F 69 18 138/60 96 - Problem List & Annotations (1) Osteomyelitis of toe of left foot SNOMED Code(s): 020262927, 483027020, 4479357458388716 Code(s): M86.9 - OSTEOMYELITIS, UNSPECIFIED Status: Acute Current Visit: Yes (2) Hypertension SNOMED Code(s): 21868374 Code(s): I10 - ESSENTIAL (PRIMARY) HYPERTENSION Status: Chronic Current Visit: Yes (3) HLD (hyperlipidemia) SNOMED Code(s): 19545600 Code(s): E78.5 - HYPERLIPIDEMIA, UNSPECIFIED Status: Chronic Current Visit: Yes (4) Obesity SNOMED Code(s): 811911956, 565743707 Code(s): E66.9 - OBESITY, UNSPECIFIED Status: Chronic Current Visit: Yes - Problem List Review Problem List Initiated/Reviewed/Updated: Yes - Plan Plan:: 56 yo female admitted with left 3rd toe cellulitis 1. Left third phalange cellulitis suspect osteomyelitis/diabetic foot ulcer -Continue to treat with IV vancomycin and Rocephin -Obtain MRI to rule out osteomyelitis -No podiatry available in town pending MRI results will consult podiatry as needed for recommendations of further care and management -Continue nonweightbearing to left foot -No dressings at this time is toe is dry and not draining 2. DM type II -ADA diet -NovoLog sliding scale with meals -Monitor blood sugars 3 times daily AC 3. Hypertension/HLD -Obtain home med list and continue medications VTE prophylaxis: Lovenox CODE STATUS: Full code Dispo: 2 to 3 days pending improvement
[2021-07-12] MEDS: VANCOmycin 1.75 GM/350 ML 1.75 GM in Premix Bag 1 BAG IV SCH ×2 (10:47→20:46)
[2021-07-12] MEDS ORDERED: Gadobenate Dimeglumine 529 MG/ML 20 ML SDV IVPUSH ONE (13:09)
--- NOTE | 2021-07-12 14:42 | MR ---
HISTORY: Diabetic foot. TECHNIQUE: MRI left foot without and with IV contrast. 20 mL MultiHance IV. COMPARISON: Left foot radiographs 07/11/2021. FINDINGS: Wound in the distal 3rd toe. Erosion of the tuft of the distal phalanx of the 3rd toe. Marrow edema in the disc and middle phalanges of the 3rd toe with T1 intermediate and hypointense marrow infiltration. No marrow infiltration elsewhere. Sclerosis throughout a majority of the lateral hallux sesamoid. Bipartite medial hallux sesamoid. Marrow edema in the proximal shaft and bases of the 2nd through 5th metatarsals. Mild patchy marrow edema in the cuneiforms and cuboid. Marrow edema in the navicular. Mild osteoarthritis of the 2nd tarsometatarsal joint. Small effusions of the ankle and subtalar joints. Lisfranc ligament is intact. Flexor and extensor tendons in the foot are intact. Distal posterior tibial tendon is intact. Full-thickness longitudinal tear of the peroneus brevis tendon just distal to the lateral malleolus. Distal aspect of the peroneus brevis tendon is intact. Peroneus longus tendon is intact. Mild tendinosis of the distal Achilles tendon. Mild atrophy of the intrinsic foot musculature with intramuscular edema. Plantar aponeurosis origin enthesophyte. Plantar aponeurosis is thickened in the hindfoot with near fluid intensity signal at the calcaneal attachment. Subcutaneous edema at the ankle and in the foot. 1.5 long by 0.5 cm diameter fluid collection in the interosseous musculature between the 2nd and 3rd metatarsals (coronal series 601, image 13). IMPRESSION: 1. Distal 3rd toe wound. Osteomyelitis of the 3rd middle and distal phalanges. 2. 1.5 cm long fluid collection in the interosseous musculature may between the 2nd and 3rd metatarsals. Ganglion cyst is favored. Abscess is less likely but not completely excluded. Subcutaneous edema. 3. Stress reactions in the 2nd through 5th metatarsals and in the bones of the midfoot. 4. Full-thickness longitudinal tear of the peroneus brevis tendon near the lateral malleolus. 5. Denervation changes. 6. Sesamoiditis of the lateral hallux sesamoid. Dictated by Tien Suarez MD @ 07/12/2021 2:41:[address] Tien Suarez @ Jul 12 2021 2:41PM
[2021-07-12] MEDS ORDERED: cefTRIAXone 1 GM in Premix Bag 1 BAG IV SCH (18:00)
[2021-07-12] MEDS ORDERED: cefTRIAXone 1 GM in Sodium Chloride 0.9% 50 ML IV SCH (18:00)
[2021-07-13] MEDS: Enoxaparin 40 MG/0.4 ML Syringe SUBCUT SCH (00:36)
[2021-07-13 07:17] LABS: BLOOD UREA NITROGEN,BUN 12 mg/dL (7.0-18.0); CARBON DIOXIDE,CO2 27.8 mmol/L (21.0-32.0); CHLORIDE,CL 107 mmol/L (98-107); GLUCOSE RANDOM 97 mg/dL (74-106); POTASSIUM,K 3.9 mmol/L (3.5-5.1); SODIUM,NA 140 mmol/L (136-145)
[2021-07-13] MEDS: Insulin Aspart 100 Units/ML 3 ML Pen SUBCUT SCH (07:52)
[2021-07-13] MEDS: INSULIN GLARGINE SUBCUT SCH (07:54)
[2021-07-13] MEDS: LIXISENATIDE SUBCUT SCH (07:54)
[2021-07-13] MEDS: VANCOmycin 1.75 GM/350 ML 1.75 GM in Premix Bag 1 BAG IV SCH (08:20)
--- NOTE | 2021-07-13 10:15 | PCM.DCSUM1 ---
Discharge Summary - Hospital Course Brief History: 56 yo female with pmh of diabetes and hypertension who for several weeks has been treated infection of his middle left toe. Patient has been on clindamycin then Bactrim. In follow up in clinic today patient was told to go to the ER. PAtient reported she had tried to cut off a callus which caused the infection. She reports some pain and redness around the left toe. - Discharge Data Discharge Date: 07/13/21 Discharge Disposition: Home, Self-Care 01 Condition: Stable - Referral to Home Health Primary Care Physician: Emily Johnson, DO - Discharge Diagnosis/Problem(s) (1) Osteomyelitis of toe of left foot SNOMED Code(s): 742485067, [id number], [id number] ICD Code: M86.9 - OSTEOMYELITIS, UNSPECIFIED Status: Acute (2) Hypertension SNOMED Code(s): 41525985 ICD Code: I10 - ESSENTIAL (PRIMARY) HYPERTENSION Status: Chronic (3) HLD (hyperlipidemia) SNOMED Code(s): 37523492 ICD Code: E78.5 - HYPERLIPIDEMIA, UNSPECIFIED Status: Chronic (4) Obesity SNOMED Code(s): 049994367, 919691293 ICD Code: E66.9 - OBESITY, UNSPECIFIED Status: Chronic - Patient Summary/Data Hospital Course: Admission Diagnoses: Cellulitis suspected Osteomyelitis L foot, 3rd phalanx Discharge Diagnoses: Ostemyelitis L foot 3rd phalanx Shannon was admitted for L foot cellulitis and suspected osteo to L third toe. Patient reports 2 weeks ago she peel and picked at a callous on this toe and since this she has been dealing with an infection and pain. She was been treated with Clindamycin and bactrim per PCP. SHe has seen podiatry in the past but not with this infection. She reported the redness worsened on Bactrim so PCP sent her to the ED for further evaluation. Lab studies WNL, no fevers and no ynaique teremia. Patient have MRI to L foot which revealed, erosion of the tuft of the distal phalanx of te 3rd toe. Marrow edema in the disc and middle phalanges of te 3rd toe consistent with osteomyelitis. I spoke with Dr Hayden, podiatry from [place]. He felt since patient was stable and afebrile, he could see her as outpatient early next week and evaluate and treat this osteo. He recommended discharge home with antibiotics, whichever we preferred and he would see her for more definitive treatment. Patient happy with this as patient no longer wanted to be in hospital and was eager for discharge home. patient will be discharged home today with Augmentin 1 tab BID and Linezolid 1 tab BID for adequate coverage as she improved on Rocephin and Vancomycin here. She remained afebrile wit no leukocytosis. I will discharge her home today, with seated scooter as she need to be non weight bearing to L foot due to wound and relieving pressure will help with healing. She is to return to ED or clinic if concerns should arise prior to podiatry appointment on friday. Monitor for fevers chills or return of cellulitis to L foot. All questions and concerns addressed. - Patient Instructions Diet: Diabetic Diet Activity: Non Weight Bearing (L foot), No Strenuous Activities Showering/Bathing: May Shower Notify Provider of: Fever, Increased Pain, Swelling and Redness, Drainage, Nausea and/or Vomiting - Discharge Plan *PRESCRIPTION DRUG MONITORING PROGRAM REVIEWED*: Not Applicable *COPY OF PRESCRIPTION DRUG MONITORING REPORT IN PATIENT ESTEPHANIA: Not Applicable Prescriptions/Med Rec: Amoxicillin/Potassium Clav [Augmentin 875-125 Tablet] 1 each PO BID #14 tablet Linezolid [Zyvox] 600 mg PO Q12H #14 tab Home Medications: Home Meds Hydrochlorothiazide 25 mg PO DAILY 09/11/17 [History] traMADol HCl [Tramadol HCl] 50 mg PO Q6H PRN 09/11/17 [History] Insulin Glargine/Lixisenatide [Soliqua 100 Unit-33 Mcg/ml Pen] 56 units SUBCUT ACBREAKFAST 07/11/21 [History] Acetaminophen/HYDROcodone [HYDROcodone-Acetaminophen 5-325 MG *] 5 - 325 mg PO Q4H PRN 07/12/21 [History] Dapagliflozin Propanediol [Farxiga] 10 mg PO DAILY 07/12/21 [History] Potassium Chloride [Klor-Con 10] 10 meq PO DAILY 07/12/21 [History] Sertraline [Zoloft] 50 mg PO DAILY 07/12/21 [History] atorvaSTATin [Lipitor] 40 mg PO DAILY 07/12/21 [History] atorvaSTATin [Lipitor] 40 mg PO DAILY 07/12/21 [History] Amoxicillin/Potassium Clav [Augmentin 875-125 Tablet] 1 each PO BID #14 tablet 07/13/21 [Rx] Linezolid [Zyvox] 600 mg PO Q12H #14 tab 07/13/21 [Rx] Oxygen Therapy Mode: Room Air Referrals: Emily Johnson DO [Primary Care Provider] - 07/26/21 9:45 am John Hayden DPM [Ordering Only Provider] - 07/16/21 3:30 pm - Discharge Summary/Plan Comment DC Time >30 min.: Yes Total # of Minutes for Discharge Time: 45, discussing treatment plan with podiatry, Dr Hayden. And counseling patient on non weight bearing status and medications for home antibiotics. - Patient Data Vitals - Most Recent: Last Vital Signs Temp 95.2 F L 07/13/21 07:48 Pulse 65 07/13/21 07:48 Resp 22 H 07/13/21 07:48 BP 128/63 07/13/21 07:48 Pulse Ox 97 07/13/21 07:48 Weight - Most Recent: 116.483 kg I&O - Last 24 hours: Intake & Output 07/12/21 07/13/21 07/13/21 22:59 06:59 14:59 Intake Total 840 800 Output Total 450 Balance 390 800 Lab Results - Last 24 hrs: Laboratory Results - last 24 hr 07/12/21 07/12/21 07/13/21 Range/Units 11:43 17:41 05:46 WBC 6.47 (4.0-11.0) K/uL RBC 4.33 (4.30-5.90) M/uL Hgb 12.1 (12.0-16.0) g/dL Hct 37.0 (36.0-46.0) % MCV 85.5 (80.0-98.0) fL MCH 27.9 (27.0-32.0) pg MCHC 32.7 (31.0-37.0) g/dL RDW Std Deviation 41.5 (28.0-62.0) fl RDW Coeff of Jessica 13 (11.0-15.0) % Plt Count 251 (150-400) K/uL MPV 9.50 (7.40-12.00) fL Neut % (Auto) 51.4 (48.0-80.0) % Lymph % (Auto) 28.4 (16.0-40.0) % [place] % (Auto) 6.5 (0.0-15.0) % Eos % (Auto) 12.5 H (0.0-7.0) % Baso % (Auto) 1.2 (0.0-1.5) % Neut # (Auto) 3.3 (1.4-5.7) K/uL Lymph # (Auto) 1.8 (0.6-2.4) K/uL [place] # (Auto) 0.4 (0.0-0.8) K/uL Eos # (Auto) 0.8 H (0.0-0.7) K/uL Baso # (Auto) 0.1 (0.0-0.1) K/uL Nucleated RBC % 0.0 /100WBC Nucleated RBCs # 0 K/uL Sodium (136-145) mmol/L Potassium (3.5-5.1) mmol/L Chloride (98-107) mmol/L Carbon Dioxide (21.0-32.0) mmol/L BUN (7.0-18.0) mg/dL Creatinine (0.6-1.0) mg/dL Est Cr Clr Drug Dosing mL/min Estimated GFR (MDRD) ml/min Glucose (74-106) mg/dL POC Glucose 91 199 H (70-99) mg/dL Calcium (8.5-10.1) mg/dL 07/13/21 07/13/21 Range/Units 05:46 07:51 WBC (4.0-11.0) K/uL RBC (4.30-5.90) M/uL Hgb (12.0-16.0) g/dL Hct (36.0-46.0) % MCV (80.0-98.0) fL MCH (27.0-32.0) pg MCHC (31.0-37.0) g/dL RDW Std Deviation (28.0-62.0) fl RDW Coeff of Jessica (11.0-15.0) % Plt Count (150-400) K/uL MPV (7.40-12.00) fL Neut % (Auto) (48.0-80.0) % Lymph % (Auto) (16.0-40.0) % [place] % (Auto) (0.0-15.0) % Eos % (Auto) (0.0-7.0) % Baso % (Auto) (0.0-1.5) % Neut # (Auto) (1.4-5.7) K/uL Lymph # (Auto) (0.6-2.4) K/uL [place] # (Auto) (0.0-0.8) K/uL Eos # (Auto) (0.0-0.7) K/uL Baso # (Auto) (0.0-0.1) K/uL Nucleated RBC % /100WBC Nucleated RBCs # K/uL Sodium 140 (136-145) mmol/L Potassium 3.9 (3.5-5.1) mmol/L Chloride 107 (98-107) mmol/L Carbon Dioxide 27.8 (21.0-32.0) mmol/L BUN 12 (7.0-18.0) mg/dL Creatinine 0.7 (0.6-1.0) mg/dL Est Cr Clr Drug Dosing 96.02 mL/min Estimated GFR (MDRD) > 60.0 ml/min Glucose 97 (74-106) mg/dL POC Glucose 106 H (70-99) mg/dL Calcium 8.3 L (8.5-10.1) mg/dL Med Orders - Current: Current Medications Hydrocodone Bitart/Acetaminophen (Acetaminophen/Hydrocodone 325-5 Mg Tab) 1 tab PO Q6H PRN PRN Reason: Pain Last Admin: 07/12/21 20:53 Dose: 1 tab Documented by: Dextrose/Water (50% Dextrose In Water 50 Ml Syringe) 50 ml IVPUSH ASDIRECTED PRN PRN Reason: Hypoglycemia Enoxaparin Sodium (Enoxaparin 40 Mg/0.4 Ml Syringe) 40 mg SUBCUT Q24H KATHY Last Admin: 07/13/21 00:36 Dose: 40 mg Documented by: Glucagon (Glucagon,Human Recombinant 1 Mg Vial) 1 mg IM ASDIRECTED PRN PRN Reason: Hypoglycemia Vancomycin HCl 1.75 gm/ Premix 350 mls @ 200 mls/hr IV Q12H KATHY Last Admin: 07/13/21 08:20 Dose: 200 mls/hr Documented by: Ceftriaxone Sodium/Dextrose 1 (gm/ Premix) 50 mls @ 100 mls/hr IV Q24H [facility] Last Admin: 07/12/21 17:50 Dose: 100 mls/hr Documented by: Insulin Aspart (Insulin Aspart 100 Units/Ml 3 Ml Pen) 0 unit SUBCUT TIDAC [facility]; Protocol Last Admin: 07/13/21 07:52 Dose: Not Given Documented by: Insulin Glargine/Lixisenatide [ Soliqua 100 Unit-33 Mcg/Ml 56 each SUBCUT ACBREAKFAST [facility] Last Admin: 07/13/21 07:54 Dose: 56 each Documented by: Vancomycin HCl (Pharmacy To Dose - Vancomycin) 1 dose .XX ASDIRECTED [facility] Discontinued Medications Ceftriaxone Sodium (Ceftriaxone 1 Gm Vial) 2 gm IVPUSH ONETIME ONE Stop: 07/11/21 18:04 Last Admin: 07/11/21 18:20 Dose: Not Given Documented by: Gadobenate Dimeglumine (Gadobenate Dimeglumine 529 Mg/Ml 20 Ml Sdv) 20 ml IVPUSH ONETIME ONE Stop: 07/12/21 13:10 Last Admin: 07/12/21 13:10 Dose: 20 ml Documented by: Vancomycin HCl 2 gm/ Premix 400 mls @ 200 mls/hr IV STAT ONE Stop: 07/11/21 20:02 Last Admin: 07/11/21 21:00 Dose: 200 mls/hr Documented by: Ceftriaxone Sodium/Dextrose 2 (gm/ Premix) 50 mls @ 100 mls/hr IV ONETIME ONE Stop: 07/11/21 18:48 Last Admin: 07/11/21 18:33 Dose: 100 mls/hr Documented by: Piperacillin Sod/Tazobactam (Sod 3.375 gm/ Sodium Chloride) 50 mls @ 100 mls/hr IV Q6H [facility] Last Admin: 07/12/21 03:03 Dose: Not Given Documented by: Ceftriaxone Sodium 1 gm/ (Sodium Chloride) 50 mls @ 100 mls/hr IV Q24H [facility] Vancomycin HCl 1.75 gm/ Premix 350 mls @ 200 mls/hr IV Q12H [facility] Last Admin: 07/12/21 04:49 Dose: Not Given Documented by: Insulin Lispro Protam/Lispro Human (Insulin Lispro Protamine/Lispro 75-25 100 Units/Ml 3 Ml Kwikpen) 30 unit SUBCUT BID KATHY
[2021-07-13 11:25] VITALS: BP 128/60; PULSE 66
== END 2021-07-13 11:20 | disposition home or self-care (01) | DRG 344 ==
LOC: MW.ED 16:13 → MW.MS 18:04
PROVIDERS: ADMIT Internal Medicine; ATTEND Internal Medicine
DX: E11.69 Type 2 diabetes mellitus with other specified complication (principal); M86.8X7 Other osteomyelitis, ankle and foot; I10 Essential (primary) hypertension; E78.5 Hyperlipidemia, unspecified; E66.9 Obesity, unspecified; Z20.822 Contact with and (suspected) exposure to COVID-19; K59.09 Other constipation; F32.9 Major depressive disorder, single episode, unspecified; D64.9 Anemia, unspecified; Z90.49 Acquired absence of other specified parts of digestive tract; Z98.890 Other specified postprocedural states; Z79.4 Long term (current) use of insulin; Z97.3 Presence of spectacles and contact lenses; Z98.84 Bariatric surgery status
CPT/HCPCS: 36415; 73630-26-LT; 73630-LT; 73720-26-LT; 73720-LT; 80048; 80053; 82550; 82947; 85025; 85652; 86140; A9270-GY; A9577; J0696; J1650; J1815-GY; J3370; U0002

== ENCOUNTER 2023-04-24 06:16 | Day surgery (SDC) | payer BC ==
[2023-04-24] MEDS ORDERED: Lactated Ringers 1,000 ML IV SCH (07:00)
[2023-04-24] MEDS ORDERED: Bupivacaine 0.5% 30 ML SDV ONE (07:22)
[2023-04-24] MEDS ORDERED: Lidocaine 1% 20 ML MDV ONE (07:22)
[2023-04-24] MEDS ORDERED: Ondansetron 4 MG/2 ML SDV ONE (07:30)
[2023-04-24] MEDS ORDERED: fentaNYL 100 MCG/2 ML SDV ONE ×2 (07:30→08:50)
[2023-04-24] MEDS ORDERED: Water For Injection, Sterile 20 ML ONE ×2 (07:30→08:27)
[2023-04-24] MEDS ORDERED: Dexmedetomidine 200 MCG/2 ML SDV ONE (07:30)
[2023-04-24] MEDS ORDERED: Propofol 200 MG/20 ML SDV ONE (07:30)
[2023-04-24] MEDS ORDERED: Lidocaine 2% 5 ML SDV ONE (07:30)
[2023-04-24] MEDS ORDERED: Metoclopramide 10 MG/2 ML SDV IVPUSH PRN (07:38)
[2023-04-24] MEDS ORDERED: HYDROmorphone 1 MG/ML Syringe IVPUSH PRN (07:38)
[2023-04-24] MEDS ORDERED: fentaNYL 50 MCG/ML SDV IVPUSH PRN (07:38)
[2023-04-24] MEDS ORDERED: Albuterol 0.083% 2.5 MG/3 ML Neb Soln NEB PRN (07:38)
[2023-04-24] MEDS ORDERED: Ondansetron 4 MG/2 ML SDV IVPUSH PRN (07:38)
[2023-04-24] MEDS ORDERED: Morphine 2 MG/ML SYRINGE IVPUSH PRN (07:38)
[2023-04-24] MEDS ORDERED: Naloxone 0.4 MG/ML SDV IVPUSH PRN (07:38)
[2023-04-24] MEDS ORDERED: droPERidol 5 MG/2 ML SDV IVPUSH PRN (07:38)
[2023-04-24] MEDS ORDERED: Famotidine 20 MG/2 ML SDV ONE (07:49)
[2023-04-24] MEDS ORDERED: ceFAZolin 2 GM in Sodium Chloride 0.9% 50 ML IV ONE (08:00)
[2023-04-24] MEDS ORDERED: ceFAZolin 2 GM Vial ONE (08:27)
[2023-04-24] MEDS ORDERED: Phenylephrine HCl 0.5 MG/5 ML AMP ONE (09:10)
[2023-04-24] MEDS ORDERED: Calcium Chloride 10% 1 GM/10 ML Syringe ONE (09:18)
[2023-04-24] MEDS ORDERED: ePHEDrine 50 MG/ML SDV ONE (09:32)
[2023-04-24] MEDS ORDERED: Sugammadex Sodium 200 MG/2 ML VIAL ONE (09:35)
[2023-04-24 11:13] VITALS: BP 138/56; PULSE 62
== END 2023-04-24 11:05 | disposition home or self-care (01) ==
LOC: MW.SDS 06:16
PROVIDERS: ATTEND Podiatrist Foot & Ankle Surgery
DX: E11.621 Type 2 diabetes mellitus with foot ulcer (principal); L97.423 Non-pressure chronic ulcer of left heel and midfoot with necrosis of muscle; M86.672 Other chronic osteomyelitis, left ankle and foot; M20.42 Other hammer toe(s) (acquired), left foot; E11.40 Type 2 diabetes mellitus with diabetic neuropathy, unspecified; E11.65 Type 2 diabetes mellitus with hyperglycemia; E66.9 Obesity, unspecified; I10 Essential (primary) hypertension; E28.2 Polycystic ovarian syndrome; E78.00 Pure hypercholesterolemia, unspecified; Z68.35 Body mass index [BMI] 35.0-35.9, adult; M79.7 Fibromyalgia; Z90.49 Acquired absence of other specified parts of digestive tract; Z98.84 Bariatric surgery status; Z86.010 Personal history of colon polyps; Z87.891 Personal history of nicotine dependence; Z79.899 Other long term (current) drug therapy; Z79.890 Hormone replacement therapy; Z88.8 Allergy status to other drugs, medicaments and biological substances; Z88.5 Allergy status to narcotic agent
CPT/HCPCS: 28825; 76000; 87070; 87075; 87205; J0690; J2370; J2704; J3010; J3490; J7120; J2405

== ENCOUNTER 2023-12-04 08:25 | Day surgery (SDC) | payer BC ==
[2023-12-04] MEDS ORDERED: propofoL 50 ML ONE (08:37)
[2023-12-04] MEDS ORDERED: Lactated Ringers 1,000 ML IV SCH (09:00)
[2023-12-04 10:32] VITALS: BP 118/59; PULSE 67
== END 2023-12-04 10:55 | disposition home or self-care (01) ==
LOC: MW.SDS 08:25
PROVIDERS: ATTEND Surgery
DX: Z12.11 Encounter for screening for malignant neoplasm of colon (principal); K63.5 Polyp of colon; D12.3 Benign neoplasm of transverse colon; D12.5 Benign neoplasm of sigmoid colon; I10 Essential (primary) hypertension; E11.628 Type 2 diabetes mellitus with other skin complications; E78.00 Pure hypercholesterolemia, unspecified; E11.9 Type 2 diabetes mellitus without complications; L84 Corns and callosities; Z79.899 Other long term (current) drug therapy; Z88.8 Allergy status to other drugs, medicaments and biological substances; Z88.5 Allergy status to narcotic agent
CPT/HCPCS: 45380; J2704; J7120; 00811

== ENCOUNTER 2023-12-11 10:36 | Emergency (ER) | payer BC, MEDICAID ==
[2023-12-11] MEDS ORDERED: Sodium Chloride 0.9% 10 ML Syringe FLUSH PRN (11:10)
[2023-12-11] MEDS ORDERED: Sodium Chloride 0.9% 2.5 ML Syringe FLUSH PRN (11:10)
[2023-12-11] MEDS ORDERED: Cefepime 2 GM in Sodium Chloride 0.9% 50 ML IV STA (11:30)
[2023-12-11 11:31] LABS: BASOPHILS ABSOLUTE AUTO 0.04 K/uL (0.00-0.20); BASOPHILS PERCENT AUTO 0.5 % (0.0-1.0); EOSINOPHILS ABSOLUTE AUTO 0.23 K/uL (0.00-0.45); EOSINOPHILS PERCENT AUTO 2.9 % (0.0-6.0); HEMOGLOBIN 10.4 g/dL (12.0-16.0); IMMATURE GRAN ABSOLUTE AUTO 0.02 K/uL (0.00-0.05); IMMATURE GRAN PERCENT AUTO 0.3 % (0.0-0.4); LYMPHOCYTES ABSOLUTE AUTO 1.09 K/uL (1.00-4.80); LYMPHOCYTES PERCENT AUTO 13.9 % (24.0-44.0); MEAN CORPUSCULAR HEMOGLOBIN 25.7 pg (28.0-32.0); MEAN CORPUSCULAR HGB CONC 31.5 g/dL (32.0-36.0); MEAN CORPUSCULAR VOLUME 81.5 fL (83.0-99.0); MEAN PLATELET VOLUME 8.7 fL (9.4-12.3); MONOCYTES ABSOLUTE AUTO 0.84 K/uL (0.00-0.80); MONOCYTES PERCENT AUTO 10.7 % (0.0-8.0); NEUTROPHILS ABSOLUTE AUTO 5.61 K/uL (1.80-7.70); NEUTROPHILS PERCENT AUTO 71.7 % (41.0-71.0); PLATELET COUNT,PLT 225 K/uL (150-400); RED BLOOD CELL COUNT 4.05 M/uL (4.10-5.30); WHITE BLOOD CELL COUNT,WBC 7.83 K/uL (3.9-11.3)
[2023-12-11] MEDS ORDERED: VANCOmycin 2 GM/400 ML 2 GM in Premix Bag 1 BAG IV ONE (11:45)
[2023-12-11 12:05] LABS: A/G RATIO 0.6 (0.9-1.6); ALBUMIN 2.7 g/dL (3.4-5.0); BILIRUBIN TOTAL 0.4 mg/dL (0.2-1.0); CALCIUM 9.2 mg/dL (8.5-10.1); CARBON DIOXIDE,CO2 29.2 mmol/L (21.0-32.0); CREATININE 0.8 mg/dL (0.6-1.0); EST CRCL DRUG DOSING (CG) 82.06 mL/min; POTASSIUM,K 5.2 mmol/L (3.5-5.1)
[2023-12-11 15:26] VITALS: BP 144/58; PULSE 76
== END 2023-12-11 17:04 ==
LOC: MW.ED 10:36
DX: M00.872 Arthritis due to other bacteria, left ankle and foot (principal); M86.172 Other acute osteomyelitis, left ankle and foot; E78.00 Pure hypercholesterolemia, unspecified; E11.9 Type 2 diabetes mellitus without complications; E66.9 Obesity, unspecified; Z88.8 Allergy status to other drugs, medicaments and biological substances; Z88.5 Allergy status to narcotic agent; Z79.899 Other long term (current) drug therapy; Z79.4 Long term (current) use of insulin; Z68.35 Body mass index [BMI] 35.0-35.9, adult
CPT/HCPCS: 36415; 73610; 73630; 73701; 80053; 83605; 85025; 85652; 86140; 87040; 87070; 87205; 96365; 96366; 96367; 99285; J0692; J3370; J3490